=== PATIENT | male | born 1950 | race Caucasian/White ===

== ENCOUNTER 2019-07-01 23:16 | Inpatient (IN) | payer OTHER ==
[~2019-07-01] VITALS: Ht 177.8 cm; Wt 106.6 kg
--- NOTE | 2019-07-01 23:21 | NUR ---
PT BIBRA. C/O PER RA: FROM HOME. NAUSEA/VOMIT. AOX1-2. PT APPEARS TO BE LETHARGIC. UNABLE TO PROVIDE MEDICAL HISTORY AT THIS TIME. PT ON MONITOR IN BED 8. WILL CONTINUE TO MONITOR.
--- NOTE | 2019-07-01 23:25 | NUR ---
BG 229. AWARE.
[2019-07-01] MEDS ORDERED: IV NS 0.9% 1,000 ML BAG IV ONE (23:30)
--- NOTE | 2019-07-01 23:34 | NUR ---
RAC18G INITIATED. PT TOLERATED WELL. BLOOD DRAWN AND GIVEN TO LAB.
--- NOTE | 2019-07-01 23:36 | NUR ---
TECH AT BEDSIDE FOR EKG
--- NOTE | 2019-07-01 23:37 | NUR ---
URINE COLLECTED AND SENT TO LAB
--- NOTE | 2019-07-01 23:42 | NUR ---
PT TAKEN TO RADIOLOGY [facility]IA [facility]
[2019-07-01 23:47] LABS: BASOPHILS # (AUTO) 0.1 /CMM (0.0-0.2); BASOPHILS % (AUTO) 0.4 % (0.0-2.0); HEMATOCRIT 40 % (39-51); HEMOGLOBIN 13.5 g/dL (13.5-17.5); LYMPHOCYTES # (AUTO) 0.6 /CMM (0.8-4.8); LYMPHOCYTES % (AUTO) 2.2 % (20.0-44.0); MEAN CORPUSCULAR HGB CONC 34 g/dl (31.0-36.0); MEAN CORPUSCULAR VOLUME 86 fL (80-96); MONOCYTES # (AUTO) 1.7 /CMM (0.1-1.30); MONOCYTES % (AUTO) 6.2 % (2.0-12.0); NEUTROPHILS # (AUTO) 25.1 /CMM (1.8-8.9); NEUTROPHILS % (AUTO) 91.2 % (43.0-81.0); PLATELET COUNT (AUTO) 261 /CMM (150-450); RED BLOOD CELL COUNT(AUTO) 4.64 MIL/uL (4.5-6.0); WHITE BLOOD COUNT (AUTO) 27.5 K/uL (4.3-11.0)
[2019-07-01 23:55] LABS: CALCIUM, SERUM 9.9 mg/dL (8.5-10.1); CARBON DIOXIDE 20 mmol/L (21-32); CHLORIDE 104 mmol/L (98-107); CREATININE 6.4 mg/dL (0.6-1.3); GLUCOSE 229 mg/dL (74-106); POTASSIUM 3.7 mmol/L (3.5-5.1); SODIUM SERUM 143 mmol/L (136-145); UREA NITROGEN, BLOOD 69 mg/dL (7-18)
[2019-07-02 00:01] LABS: ALANINE AMINOTRANSFERASE 13 U/L (12-78); ALBUMIN 3.6 g/dL (3.4-5.0); ALKALINE PHOSPHATASE 75 U/L (46-116); ASPARTATE AMINOTRANSFERASE 12 U/L (15-37); BILIRUBIN,DIRECT 0.3 mg/dL (0.0-0.2); BILIRUBIN,TOTAL 1.3 mg/dL (0.2-1.0); TOTAL PROTEIN, SERUM 7.4 g/dL (6.4-8.2)
--- NOTE | 2019-07-02 00:02 | NUR ---
PT RETURNED FROM RADIOLOGY VIA [facility]
[2019-07-02] MEDS ORDERED: DILTIAZEM HCL 25 MG IV ONE (00:07)
[2019-07-02 00:11] LABS: APPEARANCE,URINE Cloudy (CLEAR); BILIRUBIN,URINE Negative (NEGATIVE); BLOOD, URINE Large Ery/uL (NEGATIVE); COLOR,URINE Yellow (YELLOW); KETONES,URINE Negative (NEGATIVE); LEUKOCYTE ESTERASE ,URINE Large (NEGATIVE); NITRITE, URINE Negative (NEGATIVE); PROTEIN,URINE >=300 mg/dl (NEGATIVE); UGLUCOSE Negative (NEGATIVE); UROBILINOGEN,URINE 0.2 EU/dL (0.2)
--- NOTE | 2019-07-02 00:16 | NUR ---
LACTIC ACID 4.0. MD AWARE.
[2019-07-02] MEDS ORDERED: PIPERACILLIN /TAZOBACTAM 3.375 G in IV D5W 50 ML IV ONE (00:30)
[2019-07-02] MEDS ORDERED: VANCOMYCIN 1 GM VIAL ONE (00:30)
[2019-07-02] MEDS ORDERED: DILTIAZEM HCL 50 MG IV IV ONE ×2 (00:30→05:00)
[2019-07-02] MEDS ORDERED: VANCOMYCIN 1 GM in IV D5W 250 ML IV ONE (00:30)
[2019-07-02] MEDS ORDERED: PIPERACILLIN /TAZOBACTAM 3.375 G VIAL IV ONE (00:30)
[2019-07-02] MEDS ORDERED: IV NS 0.9% 1,000 ML BAG IV ONE ×2 (00:30→02:30)
[2019-07-02 00:56] LABS: BACTERIA,URINE Many /HPF (None Seen); RBC,URINE TOO NUMEROUS TO COUN /HPF (0-2); SQUAMOUS EPITHELIAL CELL,UR Rare /HPF (None Seen); WBC,URINE TOO NUMEROUS TO COUN /HPF (0-3)
--- NOTE | 2019-07-02 01:35 | NUR ---
Patient is resting comfortably in bed with eyes closed. Easily aroused. VSS. GIRLFRIEND AT BEDSIDE.
[2019-07-02] MEDS ORDERED: HYDROCODONE/APAP 5/325MG 1 EACH TABLET PO PRN (02:00)
[2019-07-02] MEDS ORDERED: ONDANSETRON HCL/PF 4 MG/2 ML VIAL IVP PRN (02:00)
[2019-07-02] MEDS ORDERED: ZOLPIDEM TARTRATE 5 MG TABLET PO PRN (02:00)
[2019-07-02] MEDS ORDERED: MAG HYDROX/AL HYDROX/SIMETH 30 ML UDC PO PRN (02:00)
[2019-07-02] MEDS ORDERED: Z GUARD REMEDY 2 OZ OINT TP PRN (02:00)
--- NOTE | 2019-07-02 02:15 | NUR ---
BED 114-2
--- NOTE | 2019-07-02 02:22 | NUR ---
REPORT GIVEN TO JOANNE AYALA FOR THANIA
[2019-07-02] MEDS ORDERED: CARV12.5 PO (02:33)
[2019-07-02] MEDS ORDERED: TAMS-12 PO (02:33)
[2019-07-02] MEDS ORDERED: DABI150C PO (02:33)
[2019-07-02 03:00] VITALS: BP 111/69
--- NOTE | 2019-07-02 03:00 | NUR ---
RN NOTES-OPENING RECEIVED PATIENT FROM ER DX. OF SEPSIS A/OX4, WITH F/C DRAINING CLEAR YELLOW URINE... PER PATIENT F/C WAS INSERTED AT [facility] ([facility]LAST SATURDAY... PATIENT WENT TO SEE HIS PRIMARY DOCTOR... PT HAS UROLOGIST APPOINTMENT ON SATURDAY REFERRED BY HIS PRIMARY MD... GIRLFRIEND AT BEDSIDE, NOT IN DISTRESS, NO PAIN NOTED, ADMISSION INSTRUCTIONS WAS RENDERED,C ALL LIGHT WITHIN REACH, SIDERAILSUPX2, CONTINUE TO MONITOR
[2019-07-02] MEDS: IV NS 0.9% 1,000 ML IV PRN ×3 (04:02→21:06)
--- NOTE | 2019-07-02 04:30 | NUR ---
RN NOTES PAGED DR. HOU TO INFORMED HER REGARDING PT.'S UNCONTROLLED A-FIB 128-146.. WAITING FOR GABRIELLE TO CALL BACK
[2019-07-02 05:00] VITALS: BP 111/69
--- NOTE | 2019-07-02 05:20 | NUR ---
RN NOTES 0455 FOLLOW UP CALL MADE TO GABRIELLE HOU VIA EXCHANGE. MADE AWARE OF CARDIZEM IVP GIVEN IN ER 5 HRS AGO. 0457 ORDERS OBTAINED FOR CARDIZEM 10MG IVP X1 AND EKG. RT MADE AWARE C/O KYLEE. 24 HOUR PHARMACY NOTIFIED TO VERIFY ORDER. PATIENT AND PRIMARY RN, LUCY AND MAUREEN MADE AWARE. 0509 HR 139 CARDIZEM ADMINISTERED. RT AT BEDSIDE TO DO EKG
[2019-07-02] MEDS ORDERED: DILTIAZEM HCL 25 MG IV IV ONE (05:30)
--- NOTE | 2019-07-02 06:45 | NUR ---
RN NOTES SLEEPING BUT AROUSABLE, NOT IN DISTRESS, NO PAIN NOTED,UNCONTROLLED AFIB, [id number]..MORNING CARE RENDERED, PT. NEEDS ATTENDED
--- NOTE | 2019-07-02 07:00 | NUR ---
GETTER WELDER NOTES PATIENT A/OX 4 PATIENTS FAMILY AT BED SIDE . PATIENT IS IN ROOM AIR PATIENT IS SATURATING WELL AT 96 % PATIENT SHOWS NO SOB NO ACUTE RESPIRATORY DISTRESS. PATIENT SKIN IS IN TACT. PATIENT HAS A RIGHT AC 18# WITH 100 ML/HR . FLUSHED AND INTACT. PATIENT SHOWS NO SIGNS OF SKIN ISSUES. BED LOCKED AND LOWEST POSITION CALL LIGHT WITH IN REACH ALL SAFETY MEASURE IMPLEMENTED PER HOSPITAL POLICY.
--- NOTE | 2019-07-02 07:00 | NUR ---
ENZO RN CLOSING NOTES PATIENT IS IN BED RESTING. A&O X4. RESPONSIVE TO VERBAL STIMULI. BREATHING IS EVEN AND NON LABORED, NO SOB NOTED AT THIS TIME. IN NO APPARENT DISTRESS NOTED. FRIEND MARTY AT BEDSIDE AT THIS TIME. PATIENT IS KEPT CLEAN, DRY, AND COMFORTABLE. BED IS LOWERED TO LOWEST POSITION AND LOCKED FOR SAFETY. CALL LIGHT IS WITHIN EASY REACH. WILL ENDORSE TO AM SHIFT RN.
[2019-07-02 07:22] LABS: CALCIUM, SERUM 8.8 mg/dL (8.5-10.1); CREATININE 6.6 mg/dL (0.6-1.3); POTASSIUM 3.3 mmol/L (3.5-5.1)
[2019-07-02] MEDS ORDERED: FEE PK DOSING 1 MIN EA MC ONE (07:52)
[2019-07-02 08:00] VITALS: BP 120/66
[2019-07-02] MEDS ORDERED: VANCOMYCIN 500 MG in IV D5W 100ml IV ONE (08:00)
--- NOTE | 2019-07-02 08:00 | NUR ---
[employer] SALES CONSULTANT 1 SWALLOW EVAL- OKAY TO GIVE DIET OF REGULAR
--- NOTE | 2019-07-02 08:00 | NUR ---
PRIVATE INQUIRY AGENT PATIENT SWEATING . PATIENT TEMPERATURE AT 100.6 . COOLING MEASURES WERE IMPLEMENTED
[2019-07-02] MEDS: ACETAMINOPHEN 325 MG TABLET PO PRN (08:36)
[2019-07-02] MEDS: PANTOPRAZOLE 40 MG VIAL IV SCH (08:36)
[2019-07-02] MEDS: PIPERACILLIN /TAZOBACTAM 2.25 G in IV D5W 50 ML IV SCH ×2 (08:40→16:23)
[2019-07-02 09:00] VITALS: BP 120/66
--- NOTE | 2019-07-02 09:00 | NUR ---
DIGITAL HARDWARE DESIGN ENGINEER NOTES PER DR TINAJERO ORDERS REINSERT NEW NARANJO. PCP AWARE AND AGREED ALSO DR VIZCARRA . REMOVED OLD CATHERTER . REINSERT NEW CATHERTER WITH COUVE. PATIENT OUTPUT AT 2440. TOOK OUT 750 ML WAITED A FEW MINS FOR THE PATIENT TO ADJUST AND CONTINUED TILL 2440. PATIENT STATED HE FEELS BETTER AFTER INSERTION OF NARANJO.
[2019-07-02 09:05] LABS: BASOPHILS % (AUTO) 0.2 % (0.0-2.0); HEMATOCRIT 33 % (39-51); HEMOGLOBIN 11.3 g/dL (13.5-17.5); LYMPHOCYTES # (AUTO) 0.4 /CMM (0.8-4.8); LYMPHOCYTES % (AUTO) 2.3 % (20.0-44.0); MEAN CORPUSCULAR HGB CONC 35 g/dl (31.0-36.0); MEAN CORPUSCULAR VOLUME 84 fL (80-96); MONOCYTES # (AUTO) 1.1 /CMM (0.1-1.30); MONOCYTES % (AUTO) 6.2 % (2.0-12.0); NEUTROPHILS # (AUTO) 16.7 /CMM (1.8-8.9); NEUTROPHILS % (AUTO) 91.3 % (43.0-81.0); PLATELET COUNT (AUTO) 146 /CMM (150-450); RED BLOOD CELL COUNT(AUTO) 3.86 MIL/uL (4.5-6.0); WHITE BLOOD COUNT (AUTO) 18.3 K/uL (4.3-11.0)
[2019-07-02 10:40] LABS: MAGNESIUM 1.6 mg/dL (1.8-2.4); PHOSPHORUS 2.6 mg/dL (2.5-4.9)
[2019-07-02] MEDS ORDERED: POTASSIUM CHLORIDE 20 MEQ TAB.PRT.SR PO ONE (11:00)
[2019-07-02] MEDS: Magnesium 1GM/D5W 100ML PREMIX 100 ML IV SCH ×2 (13:14→16:23)
[2019-07-02 16:33] VITALS: BP 88/67
--- NOTE | 2019-07-02 19:30 | NUR ---
CATTYMAN NOTES PATIENT A/O X4 PATIENT IS ASLEEP BUT EASILY WOKEN WITH NAME. FAMILY AT BEDSIDE. PATIENT IS IN ROOM AIR AND SATURATING WELL. NO SOB. EVEN AND UNLABORED BREATHING. PATIENT A/C INTACT AND PATENT NO SIGNS OF INFILTRATION. PATIENT CURRENTLY ON 250 ML FOR 2000ML. PER PCP ORDERS . PATIENT HAS NO SKIN ISSUES. BED LOCKED AND LOWEST POSITION CALL LIGHT WITH IN REACH 2 X RAILS UP . ALL SAFETY MEASURE IMPLEMENTED PER HOSPITAL POLICY .
--- NOTE | 2019-07-02 19:40 | NUR ---
manager international: received report from basia mane. pt in bed, sleeping, met with pt's gf at bed side. pt's respirations even and unlabored. pt now awake, denies any pain or discomfort at this time. iv acces on rigt ac patent and flushing well, infusing with 1st bag of ns 1L runnign at 250ml/hr, needs 2bag for total of 2L to be infuse tonight. pt on tele monitoring , afib hr 115, md aware. pt has newly inserted rees catheter coudette, inserted by day alhaji flor. pt currently npo. discussed plan of care to pt and pt's girlfriend. all concerns/questions answered based on recent labs, md's note and plan of care. ble kept offloaded. safety precautions for fall initiated, call light in reach, will continue monitoring pt.
[2019-07-02 20:00] VITALS: BP 99/68
[2019-07-02] MEDS: CEFEPIME 1 GM in IV D5W 50 ML IV SCH (21:06)
--- NOTE | 2019-07-02 21:15 | NUR ---
rn notes/nsg swallow screen: performed nursing swallow screen at 2110, pt passed, notified md district loss prevention manager. pt diet changed to cardiac, will start on clears for now and will see how pt will tolerate it. provided with jell o and cranberry juice, pt ate 100%, no s/s of aspirations noted.
[2019-07-03] VITALS (9 sets, daily range): BP systolic 90–125; BP diastolic 54–77
[2019-07-03] MEDS ORDERED: VANCOMYCIN 1 GM in IV D5W 250 ML IV SCH (01:00)
[2019-07-03] MEDS: IV NS 0.9% 1,000 ML IV PRN ×2 (01:32→15:54)
--- NOTE | 2019-07-03 02:00 | NUR ---
RN NOTES: REMAINS AFIB UNCONTROLLED 117, PT DENIES ANY CHEST PAIN HEAD ACHE, LIGHT HEADEDNESS, OR DIZZINESS
[2019-07-03] MEDS: ACETAMINOPHEN 325 MG TABLET PO PRN (04:18)
--- NOTE | 2019-07-03 04:19 | NUR ---
PRN TYLENOL: TEMP 100.2, COOLING MEASURES PROVIDED, REMOVED EXCESS BLANKET, ICE PACK PROVIDED, TYLENOL A650 MG TAB PO ADMINISTERED AT THIS TIME. WILL REASSESS.
--- NOTE | 2019-07-03 05:30 | NUR ---
am care: assisted folder seamer in providing bed bath to pt, complete linen change provided, wound care provided, oral care provided.
--- NOTE | 2019-07-03 06:45 | NUR ---
EOSS: PT RESTING, REMAINS A/O X3, ON RA RESPIRATIONS EVEN AND UNLABORED. REMAINS AFIB UNCONTROLLED HR 117. IV ACCESS REMAINS PATENT AND FLUSHING WELL, INFUSING WITH NS AT 100ML/HR. NO S/S OF IV INFILTRATION NOTED. COUDETTE CATHETER REMAINS PATENT AND FLUSHING WELL, BAG DRAINING TO GRAVITY. LATEST TEMP 98.1. COOLING MEASURES CONTINUED. BLE KEPT OFFLOADED. AWAITING NEPHRO CONSULT. VS REMAINS STABLE, NEEDS ATTENDED. SAFETY PRECAUTIONS FOR FALL REMAINS ENGAGED, CALL LIGHT IN REACH, WILL ENDORSE TO DAY RN FOR CONTINUITY OF CARE.
[2019-07-03 07:03] LABS: BASOPHILS % (AUTO) 0.1 % (0.0-2.0); EOSINOPHILS % (AUTO) 0.1 % (0.0-6.0); HEMATOCRIT 30 % (39-51); HEMOGLOBIN 10.5 g/dL (13.5-17.5); LYMPHOCYTES # (AUTO) 0.4 /CMM (0.8-4.8); LYMPHOCYTES % (AUTO) 3.3 % (20.0-44.0); MEAN CORPUSCULAR HGB CONC 35 g/dl (31.0-36.0); MEAN CORPUSCULAR VOLUME 84 fL (80-96); MONOCYTES # (AUTO) 0.6 /CMM (0.1-1.30); MONOCYTES % (AUTO) 5.2 % (2.0-12.0); NEUTROPHILS # (AUTO) 10.4 /CMM (1.8-8.9); NEUTROPHILS % (AUTO) 91.3 % (43.0-81.0); PLATELET COUNT (AUTO) 107 /CMM (150-450); RED BLOOD CELL COUNT(AUTO) 3.61 MIL/uL (4.5-6.0); WHITE BLOOD COUNT (AUTO) 11.4 K/uL (4.3-11.0)
[2019-07-03 07:05] LABS: ALANINE AMINOTRANSFERASE 12 U/L (12-78); ALBUMIN 2.3 g/dL (3.4-5.0); ALKALINE PHOSPHATASE 53 U/L (46-116); ASPARTATE AMINOTRANSFERASE 15 U/L (15-37); BILIRUBIN,TOTAL 0.7 mg/dL (0.2-1.0); CALCIUM, SERUM 8.6 mg/dL (8.5-10.1); CARBON DIOXIDE 16 mmol/L (21-32); CHLORIDE 107 mmol/L (98-107); GLUCOSE 125 mg/dL (74-106); PHOSPHORUS 3.4 mg/dL (2.5-4.9); POTASSIUM 3.6 mmol/L (3.5-5.1); SODIUM SERUM 139 mmol/L (136-145); TOTAL PROTEIN, SERUM 5.5 g/dL (6.4-8.2)
[2019-07-03 07:06] LABS: CREATININE 7.9 mg/dL (0.6-1.3); UREA NITROGEN, BLOOD 85 mg/dL (7-18)
[2019-07-03 07:10] LABS: CHOLESTEROL 53 mg/dL (<200); CREATINE KINASE, TOTAL 71 U/L (39-308); LDL 15 mg/dL (0-99); TRIGLYCERIDES 169 mg/dL (30-150)
--- NOTE | 2019-07-03 07:30 | NUR ---
ENZO/RN OPENING NOTES RECEIVED PATIENT IN BED SLEEPING COMFORTABLY. EASILY AROUSABLE. ALERT AND ORIENTED X3. PATIENT ABLE TO MAKE NEEDS KNOWN. NO PAIN OR ACUTE DISTRESS AT THIS TIME. RESPIRATION EVEN AND UNLABORED. SKIN IS DRY WARM TO TOUCH. IV ACCESS INTACT AND PATENT. FLUSHING WELL. NO S/S OF INFECTION OR INFILTRATION. ALL NEEDS ANTICIPATED. CALL LIGHT WITHIN REACHED. BED LOCKED AND IN LOWEST POSITION. SAFETY MAINTAINED. PLAN OF CARE DISCUSSED. WILL CONTINUE TO MONITOR CLOSELY.
[2019-07-03 07:43] LABS: HDL CHOLESTEROL < 10 mg/dL (40-60)
[2019-07-03] MEDS: PANTOPRAZOLE 40 MG VIAL IV SCH (08:32)
--- NOTE | 2019-07-03 10:29 | NUR ---
WOUND CARE CONSULT: PT PRESENTS INDEPENDENT WITH BED MOBILITY AND CONTINENT AT THIS TIME WITH NARANJO CATH. RECOMMENDATIONS MADE FOR SKIN PROTECTION AND DISCUSSED WITH NURSING STAFF. WILL SEE PRN. CURRENT CHELLE SCORE IS 18.
[2019-07-03 11:20] LABS: CREATININE, URINE 76.1 MG/DL (30.0-125.0); URINE TOTAL PROTEIN 211.1 mg/dL (0-11.9)
[2019-07-03 12:10] LABS: APPEARANCE,URINE SL CLOUDY (CLEAR); BILIRUBIN,URINE NEGATIVE (NEGATIVE); BLOOD, URINE LARGE Ery/uL (NEGATIVE); COLOR,URINE YELLOW (YELLOW); KETONES,URINE NEGATIVE (NEGATIVE); LEUKOCYTE ESTERASE ,URINE LARGE (NEGATIVE); NITRITE, URINE NEGATIVE (NEGATIVE); PROTEIN,URINE 100 mg/dl (NEGATIVE); UGLUCOSE NEGATIVE (NEGATIVE); UROBILINOGEN,URINE 0.2 EU/dL (0.2)
[2019-07-03 12:13] LABS: BACTERIA,URINE Few /HPF (None Seen); RBC,URINE TOO NUMEROUS TO COUN /HPF (0-2); SQUAMOUS EPITHELIAL CELL,UR Few /HPF (None Seen); WBC,URINE TOO NUMEROUS TO COUN /HPF (0-3)
--- NOTE | 2019-07-03 13:00 | NUR ---
TELE/RN NOTES RECEIVED A PHONE CALL FROM [facility] REGARDING THE PATIENT TO BE TRANSFERRED TO THEM. BUT ACCORDING TO THEM THEY CANT TAKE THE PATIENT IF THE HR IS ABOVE 110. PER MATEO RAHMAN. SHE WILL CALL THE CM HERE IN [place] TO GET ORDERS FOR MEDICATIONS TO LOWER THE HR. AWAITING FOR ORDERS. PATIENT CONTINUES TO REMAIN IN STABLE CONDITION. WILL CONTINUE TO MONITOR CLOSELY.
[2019-07-03 14:36] LABS: EOSINOPHIL,URINE Rare
--- NOTE | 2019-07-03 14:57 | NUR ---
TELE/RN NOTES RECEIVED A ORDER FROM DR. PIERRE TO GIVE COREG 12.5MG PO NOW. ALL ORDERS NOTED AND CARRIED OUT. AWAITING FOR PHARMACY TO VERIFY THE ORDER IN ORDER TO GIVE MEDICATION. WILL CONTINUE TO MONITOR CLOSELY.
[2019-07-03] MEDS ORDERED: CARVEDILOL 12.5 MG TABLET PO ONE (15:00)
[2019-07-03] MEDS ORDERED: DABIGATRAN ETEXILATE MESYLATE 150 MG CAPSULE PO SCH (17:00)
[2019-07-03] MEDS: TAMSULOSIN 0.4 MG CAP.SR.24H PO SCH (17:00)
[2019-07-03] MEDS: CARVEDILOL 12.5 MG TABLET PO SCH (17:01)
--- NOTE | 2019-07-03 18:39 | NUR ---
TELE/RN CLOSING NOTES PATIENT CONTINUES TO REMAIN IN STABLE CONDITION THROUGHOUT THE SHIFT. PROVIDED COMFORT AND SAFETY. IV ACCESS INTACT AND PATENT. FLUSHING WELL. NO S/S OF INFECTION OR INFILTRATION. ALL NEEDS ANTICIPATED. CALL LIGHT WITHIN REACHED. BED LOCKED AND IN LOWEST POSITION. SAFETY MAINTAINED. PLAN OF CARE DISCUSSED. WILL CONTINUE TO MONITOR CLOSELY. ENDORSED TO PM NURSE FOR THANIA.
--- NOTE | 2019-07-03 19:48 | NUR ---
RN NOTES RECEIVED AWAKE ALERT ORIENTED X3, SAFETY MEASURES INPLACED, ASPIRATION PRECAUTION EMPHASIZED, CALL LIGHT WITHIN EASY REACH, IV ACCESS INTACT AND PATENT, DENIES ANY PAIN OR DISCOMFORT AT THIS TIME, AT BEDSIDE, TELE MONITOR READS AFIB 103. DENIES ANY PAIN OR DISCOMFORT AT THIS TIME, COUDE CATHETER INTACT AND PATENT DRAINING WELL, ALL NEEDS ATTENDED WILL MONITOR ACCORDINGLY.
[2019-07-03] MEDS: CEFEPIME 1 GM in IV D5W 50 ML IV SCH (21:16)
[2019-07-04] MEDS ORDERED: VANCOMYCIN 1.25 GM in IV D5W 250 ML IV SCH ×2
[2019-07-04 04:43] VITALS: BP 101/54
[2019-07-04 07:28] LABS: BASOPHILS % (AUTO) 0.3 % (0.0-2.0); EOSINOPHILS % (AUTO) 2.8 % (0.0-6.0); HEMATOCRIT 29 % (39-51); HEMOGLOBIN 9.9 g/dL (13.5-17.5); LYMPHOCYTES # (AUTO) 0.4 /CMM (0.8-4.8); LYMPHOCYTES % (AUTO) 5.7 % (20.0-44.0); MEAN CORPUSCULAR HGB CONC 35 g/dl (31.0-36.0); MEAN CORPUSCULAR VOLUME 86 fL (80-96); MONOCYTES # (AUTO) 0.6 /CMM (0.1-1.30); NEUTROPHILS # (AUTO) 5.4 /CMM (1.8-8.9); NEUTROPHILS % (AUTO) 82.2 % (43.0-81.0); PLATELET COUNT (AUTO) 83 /CMM (150-450); RED BLOOD CELL COUNT(AUTO) 3.31 MIL/uL (4.5-6.0); WHITE BLOOD COUNT (AUTO) 6.5 K/uL (4.3-11.0)
--- NOTE | 2019-07-04 07:29 | NUR ---
RN NOTES ALL NEEDS ATTENDED AND MET, HR FLUCTUATES 80S - 115, DENIES ANY PAIN. ABLE TO SLEPT AT INTERVALS, ENDORSED TO AM NURSE FOR CONTINUITY OF CARE.
--- NOTE | 2019-07-04 07:35 | NUR ---
INITIAL RECEIVED PATIENT FROM ER DX. OF SEPSIS A/OX4, WITH F/C DRAINING CLEAR YELLOW URINE.. PT A-FIB AT 107 ON MONITOR PER PATIENT F/C WAS INSERTED AT [place] ([facility])LAST SATURDAY. PATIENT WENT TO SEE HIS PRIMARY DOCTOR. PT HAS UROLOGIST APPOINTMENT ON SATURDAY REFERRED BY HIS PRIMARY MD. PT NOT IN DISTRESS, NO PAIN NOTED, ADMISSION INSTRUCTIONS WAS RENDERED,C ALL LIGHT WITHIN REACH, [id number], CONTINUE TO MONITOR
[2019-07-04 07:40] LABS: CALCIUM, SERUM 8.7 mg/dL (8.5-10.1); MAGNESIUM 2.1 mg/dL (1.8-2.4); PHOSPHORUS 4.9 mg/dL (2.5-4.9); POTASSIUM 3.7 mmol/L (3.5-5.1)
[2019-07-04 07:43] LABS: CREATININE 8.7 mg/dL (0.6-1.3)
[2019-07-04 08:00] VITALS: BP 108/44
[2019-07-04 08:56] LABS: LYMPHOCYTES % (MANUAL) 6 % (16-48); MONOCYTES % (MANUAL) 11 % (0-11.0); NEUTROPHILS % (MANUAL) 83 (42-76)
[2019-07-04] MEDS: TAMSULOSIN 0.4 MG CAP.SR.24H PO SCH ×2 (09:23→18:01)
[2019-07-04] MEDS: CARVEDILOL 12.5 MG TABLET PO SCH ×2 (09:24→18:01)
[2019-07-04] MEDS: APIXABAN 2.5 MG TABLET PO SCH ×2 (10:05→18:02)
[2019-07-04] MEDS: IV NS 0.9% 1,000 ML IV PRN (11:32)
[2019-07-04] MEDS: DIGOXIN INJ 0.5 MG/2 ML AMPUL IV SCH ×2 (11:52→18:03)
[2019-07-04 14:08] LABS: PTH, INTACT 106 pg/mL (15-65)
[2019-07-04 15:12] LABS: CALCIUM, SERUM 8.1 mg/dL (8.5-10.1); POTASSIUM 3.8 mmol/L (3.5-5.1)
[2019-07-04 15:16] LABS: CREATININE 8.7 mg/dL (0.6-1.3)
--- NOTE | 2019-07-04 15:54 | NUR ---
MARIAH SPOKE WITH RICHARD DEL CID RN AT [facility] UPDATED PT PROFILE AND RICHARD WILL CALL BACK FOR PLACEMENT AT [facility].
--- NOTE | 2019-07-04 15:55 | NUR ---
MARTA BENNETT AWARE OF BUN 102 AND CR 8.7
[2019-07-04 16:33] VITALS: BP 105/60
--- NOTE | 2019-07-04 17:02 | NUR ---
ACCEPTED BY [facility] GOING TO [facility],RM [phone] PICKUP [phone] REPORT TO ,RECEIVING MD DR. WYLIE.
[2019-07-04] MEDS ORDERED: CEFE1VIA3 IJ (17:56)
[2019-07-04] MEDS ORDERED: DIGO250A9 IV (17:56)
[2019-07-04] MEDS ORDERED: APIX2.5T PO (17:56)
[2019-07-04 18:01] VITALS: BP 105/60
--- NOTE | 2019-07-04 18:14 | NUR ---
REPORT RN REPORT GIVEN TO JOANNE DE LA ROSA AT [address] . PRN #[phone] HERE TO TRANSPORT PT TO [facility].
[2019-07-06 08:13] LABS: *SPE ALBUMIN 2.5 g/dL (2.9-4.4); *SPE ALPHA-1-GLOBULIN 0.4 g/dL (0.0-0.4); *SPE ALPHA-2-GLOBULIN 0.8 g/dL (0.4-1.0); *SPE BETA GLOBULIN 0.6 g/dL (0.7-1.3); *SPE GLOBULIN, TOTAL 2.4 g/dL (2.2-3.9); *SPE M-SPIKE Not Observed g/dL (Not Observed); *SPEGAMMA GLOBULIN 0.7 g/dL (0.4-1.8)
== END 2019-07-04 18:36 | disposition short-term general hospital (02) | DRG 871 ==
LOC: ER 23:17 → TELE-TD 07-02 02:50 → TELE1 07-03 12:09 → MEDSG1 07-04 09:00
PROVIDERS: ADMIT Hospitalist; ATTEND Hospitalist
DX: A41.51 Sepsis due to Escherichia coli [E. coli] (principal); G93.41 Metabolic encephalopathy; N17.0 Acute kidney failure with tubular necrosis; I21.A1 Myocardial infarction type 2; E43 Unspecified severe protein-calorie malnutrition; E87.2 Acidosis; D68.9 Coagulation defect, unspecified; N13.30 Unspecified hydronephrosis; N39.0 Urinary tract infection, site not specified; R65.20 Severe sepsis without septic shock; I48.91 Unspecified atrial fibrillation; E83.42 Hypomagnesemia; Z87.440 Personal history of urinary (tract) infections; N18.9 Chronic kidney disease, unspecified; I13.10 Hypertensive heart and chronic kidney disease without heart failure, with stage 1 through stage 4 chronic kidney disease, or unspecified chronic kidney disease; E87.6 Hypokalemia; N40.0 Benign prostatic hyperplasia without lower urinary tract symptoms; Z79.899 Other long term (current) drug therapy; N32.0 Bladder-neck obstruction
CPT/HCPCS: 36415; 70450-TC; 71045-TC; 76770-TC; 80048-TC; 80053-TC; 80061-TC; 80076-TC; 80202-TC; 81000-TC; 82550-TC; 82570-TC; 82962-TC; 83605-TC; 83735-TC; 83970; 84100-TC; 84155; 84155-TC; 84165; 84300-TC; 84484-TC; 85025-TC; 85730-TC; 87040-TC; 87081-TC; 87086-TC; 87186-TC; 92611-TC; 93307-TC; 97116-TC; 97530-TC; A6403; C9113; G0378; J0692; J1160; J2543; J3370; J3475; J3490; J7030; J7050; J7060